=== PATIENT | female | born 1970 | race Caucasian/White ===

== ENCOUNTER 2018-02-19 11:58 | Emergency (ER) | payer SELFPAY ==
[~2018-02-19] VITALS: Ht 162.6 cm; Wt 86.2 kg
[2018-02-19] MEDS ORDERED: LEVSOD150 PO (12:23)
== END 2018-02-19 13:00 | disposition home or self-care (01) ==
LOC: ER 11:58
DX: L02.411 Cutaneous abscess of right axilla (principal); F17.200 Nicotine dependence, unspecified, uncomplicated; Z79.899 Other long term (current) drug therapy
CPT/HCPCS: 10061; 99283

== ENCOUNTER → 2018-02-26 | Outpatient (CLI) | payer OTHER ==
[~2018-02-26] MED LIST: LEVSOD150 PO
== END | disposition home or self-care (01) ==
LOC: LAB EV 18:05 → LAB SHORT 18:05
DX: E03.9 Hypothyroidism, unspecified (principal)
CPT/HCPCS: 84443